=== PATIENT | female | born 1950 | race Hispanic/Latino ===

== ENCOUNTER 2018-03-22 06:23 | Day surgery (SDC) | payer MEDICARE ==
[~2018-03-22] VITALS: Ht 157.5 cm; Wt 61.1 kg
[2018-03-22] MEDS ORDERED: DILT-36 PO (07:01)
[2018-03-22] MEDS ORDERED: ROSU10TA PO (07:01)
[2018-03-22 07:10] VITALS: BP 152/66
[2018-03-22] MEDS ORDERED: SODIUM CHLORIDE 0.9% 1000ML 1,000 ML IV ONE (07:37)
[2018-03-22] MEDS ORDERED: PROPOFOL 10 MG/ML 20ML VIAL IV ONE (08:13)
[2018-03-22 08:38] VITALS: BP 90/43
== END 2018-03-22 09:10 | disposition home or self-care (01) ==
LOC: ENDO 06:23 → DAH 06:23 → ENDO 09:10
PROVIDERS: ATTEND Internal Medicine
DX: D12.4 Benign neoplasm of descending colon (principal); D12.0 Benign neoplasm of cecum; K56.2 Volvulus; Z86.010 Personal history of colon polyps; I10 Essential (primary) hypertension; E78.5 Hyperlipidemia, unspecified; Z79.899 Other long term (current) drug therapy
CPT/HCPCS: 45380; 93005; A4606; J2704; J7030